=== PATIENT | female | born 1980 | race Caucasian/White ===

== ENCOUNTER 2016-12-02 17:23 | Emergency (ER) | payer MEDICAID, OTHER ==
[~2016-12-02] VITALS: Ht 157.5 cm; Wt 68.5 kg
[2016-12-02 17:28] VITALS: Ht 157.5 cm; Wt 68.5 kg
[2016-12-02] MEDS ORDERED: ACETAMINOPHEN 325 MG TAB PO STA (18:09)
--- NOTE | 2016-12-02 18:47 | RADRPT ---
PROCEDURE: OBSTETRICAL ULTRASOUND WITH ENDOVAGINAL IMAGES CLINICAL INDICATION: Vaginal Bleed () TECHNIQUE: Multiple sonographic images of the pelvis were obtained utilizing a transabdominal and endovaginal technique. The images were reviewed on a PACS workstation. COMPARISON: None. FINDINGS: The uterus is retroverted. A possible intrauterine gestational sac is identified with mean sac diameter of 2.10 cm which would be consistent with a gestational age of 7 weeks, 0 days and an estimated date of delivery of 018 . No yolk sac or pole is identified within it. There is a 1.6 x 1.5 cm hypoechoic and hypovascular crescentic lesion adjacent to the gestational sa c consistent with a subchorionic hemorrhage. The right ovary measures 2.8 x 1.5 x 1.9 cm. The left ovary measures 2.7 x 1.5 x 2.4 cm. There is no rmal vascular flow in both ovaries. No significant ovarian lesions are seen. No significant pelvic free fluid is identified. IMPRESSION: A possible intrauterine gestational sac is identified which would be consistent with a gestational a ge of 7 weeks, 0 days . No yolk sac or pole is identified within it. Findings may be due to a n early intrauterine although an ectopic and early demise are not excluded , particularly in the setting of vaginal bleeding. Short-term follow-up ultrasound and serial Beta HCG measurements are recommended for further evaluation. 1.6 cm subchorionic hemorrhage. Bilateral ovaries and adnexa are unremarkable. RPTAT: EE Physician Deonte Date Time Electronically viewed and signed by Physician Deonte on 12/02/2016 18:47 /
[2016-12-02 18:58] LABS: ADD SCAN DIFF NO
[2016-12-02 19:01] LABS: BASOPHILS % 0.3 % (0.0-2.0); EOSINOPHILS # 0.6 10^3/ul (0.0-0.5); EOSINOPHILS % 5.1 % (0.0-7.0); HEMATOCRIT 40.3 % (37.0-47.0); HEMOGLOBIN 13.6 g/dl (12.0-16.0); LYMPHOCYTES % 31.7 % (15.0-51.0); MEAN CORPUSCULAR HEMOGLOBIN 31.6 pg (29.0-33.0); MEAN CORPUSCULAR HGB CONC 33.7 g/dl (32.0-37.0); MEAN CORPUSCULAR VOLUME 93.7 fl (82.0-101.0); MEAN PLATELET VOLUME 9.5 fl (7.4-10.4); MONOCYTE # 0.9 10^3/ul (0.3-0.9); MONOCYTES % 6.9 % (0.0-11.0); NEUTROPHIL # 6.9 10^3/ul (1.6-7.5); NEUTROPHILS % 55.6 % (39.0-77.0); PLATELET COUNT 293 10^3/UL (140-415); RED CELL DISTRIBUTION WIDTH 12.8 % (11.5-14.5); WHITE BLOOD COUNT 12.5 10^3/ul (4.8-10.8)
[2016-12-02 19:13] LABS: ADD UMIC YES; URINE BILIRUBIN (Dip) NEGATIVE (NEGATIVE); URINE BLOOD (Dip) 3+ (NEGATIVE); URINE COLOR LT. YELLOW (YELLOW); URINE GLUCOSE (Dip) NEGATIVE (NEGATIVE); URINE KETONES (Dip) NEGATIVE (NEGATIVE); URINE LEUKOCYTE ESTERASE (Dip) NEGATIVE (NEGATIVE); URINE NITRITE (Dip) NEGATIVE (NEGATIVE); URINE TOTAL PROTEIN (Dip) NEGATIVE (NEGATIVE); URINE UROBILINOGEN (Dip) 0.2 E.U./dL (0.1-1.0)
[2016-12-02 19:33] LABS: SQUAMOUS EPITHELIAL CELL,UR RARE
[2016-12-02 20:18] VITALS: BP 134/65; PULSE 65; RESP 18; TEMP 98
--- NOTE | 2016-12-02 20:38 | ERD ---
ER Documentation Chief Complaint Date/Time DATE: 12/02/16 TIME: 20:33 Chief Complaint vaginal bleeding x 8 days, worse today, 12wks HPI A 36-year-old female with no medical problems who presents with vaginal bleeding. She says that she has had vaginal bleeding off and on for the past 12 days. It comes and goes. She has mild pelvic pain. She feels like she is approximately 3 months . She has had no fevers. Upon review of old medical records this is the patient's first visit to the emergency department. She goes to a local clinic for her OB care. ROS All systems reviewed and are negative except as per history of present illness. Allergies Allergies: Coded Allergies: No Known Allergy (Unverified , 12/02/16) PMhx/Soc Medical and Surgical Hx: pt denies Medical Hx, pt denies Surgical Hx Hx Alcohol Use: No Hx Substance Use: No Hx Tobacco Use: No Smoking Status: Never smoker FmHx Family History: diabetes Physical Exam Vitals Vital Signs Date Time Temp Pulse Resp B/P Pulse Ox O2 Delivery O2 Flow Rate FiO2 12/02/16 20:18 98.0 65 18 134/65 98 12/02/16 17:28 98.6 70 18 147/84 97 Physical Exam Const: No acute distress Head: Atraumatic Eyes: Normal Conjunctiva ENT: Normal External Ears, Nose and Mouth. Neck: Full range of motion..~ No meningismus. Resp: Clear to auscultation bilaterally Cardio: Regular rate and rhythm, no murmurs Abd: Soft, non tender, non distended. Normal bowel sounds Skin: No petechiae or rashes Back: No midline or flank tenderness Ext: No cyanosis, or edema Neur: Awake and alert Psych: Normal Mood and Affect Result Diagram: 12/02/16 1844 Results 24 hrs Laboratory Tests Test 12/02/16 18:12 12/02/16 18:44 Urine Color LT. YELLOW Urine Clarity CLEAR Urine pH 6.0 Urine Specific [place] 1.020 Urine Ketones NEGATIVE Urine Nitrite NEGATIVE Urine Bilirubin NEGATIVE Urine Urobilinogen 0.2 E.U./dL Urine Leukocyte Esterase NEGATIVE Urine Microscopic RBC 10-25/HPF Urine Microscopic WBC 0-2/HPF Urine Squamous Epithelial Cells RARE Urine Hemoglobin 3+ Urine Glucose NEGATIVE% Urine Total Protein NEGATIVE White Blood Count 12.510^3/ul Red Blood Count 4.3010^6/ul Hemoglobin 13.6g/dl Hematocrit 40.3% Mean Corpuscular Volume 93.7fl Mean Corpuscular Hemoglobin 31.6pg Mean Corpuscular Hemoglobin Concent 33.7g/dl Red Cell Distribution Width 12.8% Platelet Count 55812^3/UL Mean Platelet Volume 9.5fl Neutrophils % 55.6% Lymphocytes % 31.7% Monocytes % 6.9% Eosinophils % 5.1% Basophils % 0.3% Nucleated Red Blood Cells % 0.0/100WBC Neutrophils # 6.910^3/ul Lymphocytes # 4.010^3/ul Monocytes # 0.910^3/ul Eosinophils # 0.610^3/ul Basophils # 0.010^3/ul Nucleated Red Blood Cells # 0.010^3/ul Beta HCG, Quantitative 6389.6mIU/ml Current Medications Medications (Trade) Dose Ordered Sig/Vish Route PRN Reason Start Time Stop Time Status Last Admin Dose Admin Acetaminophen (Tylenol Tab) 650 mg ONCE STAT PO 12/02/16 18:09 12/02/16 18:10 DC 12/02/16 18:38 Procedures/MDM PROCEDURE: OBSTETRICAL ULTRASOUND WITH ENDOVAGINAL IMAGES CLINICAL INDICATION: Vaginal Bleed () TECHNIQUE: Multiple sonographic images of the pelvis were obtained utilizing a transabdominal and endovaginal technique. The images were reviewed on a PACS workstation. COMPARISON: None. FINDINGS: The uterus is retroverted. A possible intrauterine gestational sac is identified with mean sac diameter of 2.10 cm which would be consistent with a gestational age of 7 weeks, 0 days and an estimated date of delivery of 07/21/2017 . No yolk sac or pole is identified within it. There is a 1.6 x 1.5 cm hypoechoic and hypovascular crescentic lesion adjacent to the gestational sac consistent with a subchorionic hemorrhage. The right ovary measures 2.8 x 1.5 x 1.9 cm. The left ovary measures 2.7 x 1.5 x 2.4 cm. There is normal vascular flow in both ovaries. No significant ovarian lesions are seen. No significant pelvic free fluid is identified. IMPRESSION: A possible intrauterine gestational sac is identified which would be consistent with a gestational age of 7 weeks, 0 days . No yolk sac or pole is identified within it. Findings may be due to an early intrauterine although an ectopic and early demise are not excluded, particularly in the setting of vaginal bleeding. Short-term follow-up ultrasound and serial Beta HCG measurements are recommended for further evaluation. 1.6 cm subchorionic hemorrhage. Bilateral ovaries and adnexa are unremarkable. RPTAT: EE Physician Deonte Date Time Electronically viewed and signed by Sohail Hutchins Physician on 12/02/2016 18:47 Patient is a 36-year-old female who presents with vaginal bleeding. The patient has an abnormal ultrasound and a quantitative hCG of 6300. Her blood type is Rh+ and she does not require RhoGam. It is possible this is normal versus miscarriage versus ectopic . I sense that ectopic is low likelihood in this case. I spoke with Dr. Mcmahan the labor arrest art sales consultant who agrees and she feels the patient is stable for outpatient management with follow-up in 48 hours at her OB clinic or return to the ER for reevaluation. She can return sooner for any worsening symptoms. I believe outpatient management is appropriate. She was given copies of her ultrasound report and laboratory studies prior to discharge. Departure Diagnosis: Primary Impression: Threatened Condition: Fair Patient Instructions: Possible Miscarriage (Threatened ) Referrals: Your OB doctor Additional Instructions: Llame al doctor MAANA y eric patrick WES PARA DENTRO DE 1-2 DUTTA.Dgale a la secretaria que nosotros le instruimos hacer esta wes.Avise o llame si valencia condicin se empeora antes de la wse. Regresa aqui si peor o no mejor. JOAQUIN LEONARD MD December 02, 2016 20:38
== END 2016-12-02 20:20 | disposition home or self-care (01) ==
LOC: FTE 17:23
DX: O20.0 Threatened abortion (principal); Z3A.01 Less than 8 weeks gestation of pregnancy
CPT/HCPCS: 36415; 76801; 76817; 81001; 84702; 85025; 86900; 86901; Z7502; Z7610

== ENCOUNTER 2017-07-18 15:10 | Emergency (ER) | END 2017-07-18 19:55 | disposition home or self-care (01) ==

== ENCOUNTER 2017-07-20 13:16 | Emergency (ER) | END 2017-07-20 17:49 | disposition left against medical advice (07) ==

== ENCOUNTER 2018-10-14 21:44 | Emergency (ER) | payer MEDICAID ==
[~2018-10-14] VITALS: Wt 67.7 kg
[~2018-10-14 21:44] MED LIST: ACET500C5 PO; CEPH-443 PO
[2018-10-15] MEDS ORDERED: ONDANSETRON (ODT) 4 MG TAB ODT STA (00:33)
[2018-10-15] MEDS ORDERED: MECLIZINE 12.5 MG TAB PO ONE (01:00)
--- NOTE | 2018-10-15 01:12 | ERD ---
ER Documentation Chief Complaint Chief Complaint nausea/dizziness since 1400 HPI 38-year-old female presents for dizziness and nausea times 1 day. States that the dizziness is a spinning sensation that is worse with head movement. She states that her last menstrual period was about 3 weeks ago. She denies any vom iting or fever. Denies chest pain or shortness of breath. Denies abdominal pain. Denies weakness. No treatments tried at home. ROS All systems reviewed and are negative except as per history of present illness. Medications Home Meds Active Scripts Ondansetron (Ondansetron Odt) 4 Mg Tab.rapdis, 4 MG PO Q6H PRN for NAUSEA AND/OR VOMITING, #15 TAB Prov:MILLERRACHELL 10/15/18 Meclizine Hcl* (Meclizine Hcl*) 25 Mg Tablet, 25 MG PO Q8H PRN for DIZZINESS, #30 TAB Prov:RACHELL BHATT DO 10/15/18 Acetaminophen* (Tylophen*) 500 Mg Capsule, 1 CAP PO Q6H PRN for PAIN AND OR ELEVATED TEMP, #15 CAP Prov:FARZANEH TUCKER MD 07/18/17 Cephalexin* (Keflex*) 500 Mg Capsule, 500 MG PO QID for 5 Days, CAP Prov:FARZANEH TUCKER MD 07/18/17 Allergies Allergies: Coded Allergies: No Known Allergy (Unverified , 12/02/16) PMhx/Soc History of Surgery: No Anesthesia Reaction: No Hx Neurological Disorder: No Hx Respiratory Disorders: No Hx Cardiac Disorders: No Hx Psychiatric Problems: No Hx Miscellaneous Medical Probl: No Hx Alcohol Use: No Hx Substance Use: No Hx Tobacco Use: No Physical Exam Vitals Vital Signs Date Temp Pulse Resp B/P (MAP) Pulse Ox O2 O2 Flow FiO2 Time Delivery Rate 10/15/18 98.7 70 18 147/80 100 Room Air 01:32 (102) 10/14/18 98.8 76 18 146/72 98 21:53 (96) Physical Exam Const: No acute distress Head: Atraumatic Eyes: Normal Conjunctiva, no nystagmus noted ENT: Normal External Ears, Nose and Mouth. Neck: Full range of motion. No meningismus. Resp: Clear to auscultation bilaterally Cardio: Regular rate and rhythm, no murmurs, bilateral radial and dorsalis pedis pulses intact Abd: Soft, non tender, non distended. Normal bowel sounds Skin: No petechiae or rashes Back: No midline or flank tenderness Ext: No cyanosis, or edema, bilateral upper and lower extremity 5 out of 5 muscle strength Neur: Awake and alert, bilateral upper and lower extremity sensation intact Psych: Normal Mood and Affect Results 24 hrs Laboratory Tests Test 10/15/18 00:43 POC Beta HCG, Qualitative NEGATIVE Current Medications Medications Dose Sig/Vish Start Time Status Last (Trade) Ordered Route PRN Stop Time Admin Dose Reason Admin Meclizine 25 mg ONCE ONCE 10/15/18 DC 10/15/18 HCl PO 01:00 10/15/18 00:43 (Antivert) 01:01 Ondansetron 4 mg ONCE STAT 10/15/18 DC 10/15/18 HCl (Zofran ODT 00:33 10/15/18 00:43 Odt) 00:38 Procedures/MDM Medical Decision Making: Differential diagnosis includes but not limited to benign positional vertigo, CVA, electrolyte disorder, Patient appeared well on physical exam. There is no nystagmus noted on physical examination. She was neurovascularly intact ED course: Patient was given meclizine and Zofran. Symptoms improved with treatment. Low suspicion for CVA given intact muscle strength, no facial droop. Possible benign positional vertigo Prescription(s): Patient given prescription for supportive medication(s). Patient advised to follow up with PCP in 1-2 days. Patient advised to return to ED for new or worsening symptoms. Patient stable on discharge from the ED. Disclaimer: Inadvertent spelling and grammatical errors are likely due to EHR/dictation software use and do not reflect on the overall quality of patient care. Also, please note that the electronic time recorded on this note does not necessarily reflect the actual time of the patient encounter. Departure Diagnosis: Primary Impression: Dizziness Additional Impression: Mild nausea Condition: Fair Patient Instructions: Dizziness (Vertigo) and Balance Problems: Ensuring Your Safety RACHELL BHATT DO Oct 15, 2018 01:12
[2018-10-15] MEDS ORDERED: ONDA4TAB14 PO (01:13)
[2018-10-15] MEDS ORDERED: MECL-77 PO (01:13)
[2018-10-15 01:32] VITALS: BP 147/80; PULSE 70; RESP 18
== END 2018-10-15 01:32 | disposition home or self-care (01) ==
LOC: FTE 21:44
DX: R42 Dizziness and giddiness (principal); R11.0 Nausea
CPT/HCPCS: 81025; Z7610; 99283